=== PATIENT | male | born 1950 | race Caucasian/White ===

== ENCOUNTER → 2018-09-21 | Outpatient (CLI) | payer MEDICARE, OTHER ==
--- NOTE | 2018-09-21 16:18 | RAD ---
Examination: Ultrasound right groin HISTORY: History of right groin lump COMPARISON: None available. FINDINGS: There is a 8 mm round hypoechoic region without vascular flow identified in the right groin, just adjacent to this region there is a 1.7 cm hypoechoic region. Few right inguinal lymph nodes identified with the largest measuring 1.6 cm. IMPRESSION: 2 hypoechoic regions identified as described above in the right groin, uncertain etiology, could be secondary to surgery and/or scarring changes. Recommend cross-sectional imaging with IV contrast if clinically feasible for further evaluation. Electronically signed by: Jamil Jo MD (09/21/2018 4:16 PM) [place] [id number]
== END | disposition home or self-care (01) ==
LOC: US 14:47
PROVIDERS: ATTEND Surgery
DX: R59.0 Localized enlarged lymph nodes (principal)
CPT/HCPCS: 76881

== ENCOUNTER → 2020-05-28 | Outpatient (CLI) | payer MEDICARE, OTHER ==
--- NOTE | 2020-05-28 10:35 | RAD ---
INDICATION: Reason: VISUAL CHANGES- SEEING FLASHING LIGHTS IN LT EYE ONSET THURSDAY / . Instructio ns: / History: COMPARISON: None. TECHNIQUE: Axial CT images obtained through the head without intravenous contrast. One or more of the following individualized dose reduction techniques were utilized for this examinat ion: 1. Automated exposure control; 2. Adjustment of the mA and/or kV according to patient size; 3 . Use of iterative reconstruction technique. FINDINGS: No intracranial hemorrhage. No midline shift. Basal cisterns patents. Ventricles and sulci are globally prominent. No acute osseous abnormality. Orbits and paranasal sinuses unremarkable. Scattered foci of low attenuation within the white matter. Calcific atherosclerosis. IMPRESSION: 1. No acute intracranial hemorrhage. 2. Scattered regions of low attenuation within the white matter. Non-specific in nature but frequen tly secondary to chronic small vessel ischemic disease. 3. Prominence of ventricles and sulci which is frequently secondary to age related volume loss. Electronically signed by: Jesús Oakley MD (05/28/2020 10:32 AM) [id number]
== END ==
LOC: PMG 10:02
PROVIDERS: ATTEND Family Medicine
DX: H53.9 Unspecified visual disturbance (principal); R93.0 Abnormal findings on diagnostic imaging of skull and head, not elsewhere classified
CPT/HCPCS: 70450